=== PATIENT | male | born 1945 | race Caucasian/White ===

== ENCOUNTER 2017-06-10 13:02 | Observation (INO) ==
[2017-06-10] MEDS ORDERED: Acetaminophen 325 MG TABLET PO PRN (16:10)
[2017-06-10] MEDS ORDERED: Naloxone 0.4 MG/ML INJ IVP PRN (16:10)
[2017-06-10] MEDS ORDERED: *HR* OxyCODONE Immed Rel 5 MG TABLET PO PRN (16:10)
[2017-06-10] MEDS: *HR* HYDROmorphone (PF) 1 MG/ML SYRINGE IVP PRN (17:23)
[2017-06-10] MEDS: 0.9 % Sodium Chloride 1,000 ML IVC SCH (17:36)
--- NOTE | 2017-06-10 18:52 | Urology History & Physical ---
Date of Encounter: 06/10/17 Time of Encounter: 18:50 Assessment and Plan (1) Ureteral calculus, right Current Visit: Yes Status: Acute 72-year-old man with a right proximal ureteral stone. He has been admitted for pain control. I recommend proceeding with a right ureteroscopy, laser lithotripsy, and stent placement. He was informed of the risks of the procedure including but not limited to bleeding, infection, injury to other structures, need for further procedures, stent irritation, incomplete fragmentation, ureteral perforation, need for nephrostomy tube, need for open repair, risks unforeseen, and the risk of anesthesia. He is willing to proceed. History of Present Illness Chief complaint: Right flank pain HPI: Mr. Rhodes is a 72 year old male who presents with a one-week history of right flank pain. He was seen at the [facility] emergency department and had a CT scan obtained. This showed an approximate 6 mm right proximal ureteral stone. There is evidence of hydronephrosis. He was then transferred to [place] for further care. He reports the pain is located in the right flank and radiated to the groin. It is a sharp pain. He has previously been able to pass stones, but this one is not moving well. He says he is otherwise healthy. Past Med Surg Social Fam HX - Past Medical History Medical history: hyperlipidemia, hypertension Psychiatric history: no psych history - Past Surgical History Surgical History: appendectomy - Social History Smoking Status: Former smoker Smokeless Tobacco Status: No Alcohol use: none Drug use: none - Family History Father Hx Family Genitourinary Disorders: No (No stones) Medications and Allergies Aspirin [Lo-Dose Aspirin EC] 81 mg PO DAILY 12/23/16 [History] Calcium Carbonate [Calcium] 500 mg PO DAILY 12/23/16 [History] Cholecalciferol (Vitamin D3) [Vitamin D3] 1,000 unit PO DAILY 12/23/16 [History] Furosemide [Lasix] 40 mg PO DAILY 12/23/16 [History] Lisinopril [Zestril] 10 mg PO DAILY 12/23/16 [History] Nitroglycerin [Nitrostat] 0.4 mg SL Q5M PRN 12/23/16 [History] 3 Allergy/AdvReac Type Severity Reaction Status Date / Time No Known Allergies Allergy Verified 12/23/16 08:44 Review of Systems - Constitutional no chills, no fever(s) - EENT Nose, mouth and throat: no dizziness - Cardiovascular no chest pain - Respiratory no dyspnea - Gastrointestinal no nausea, no vomiting - Genitourinary flank pain, no hematuria - Musculoskeletal no back pain - Integumentary no erythema, no rash - Neurological no weakness - Psychiatric no suicidal ideation - Hematologic/Lymphatic no easy bleeding - Allergic/Immunologic no wheezing Exam Initial Vital Signs Temp Pulse Resp BP Pulse Ox 98.3 F 65 16 142/83 94 06/10/17 15:11 06/10/17 15:11 06/10/17 15:11 06/10/17 15:11 06/10/17 15:11 - General physical appearance Present: well developed, well nourished, no distress - Eyes Absent: icteric - ENT Present: normal nares - Neck Present: trachea midline - Respiratory Present: normal respiratory effort - Cardiovascular Cardiovascular exam IM: RRR - Abdomen Abdomen: Present: soft Urology Results - Labs All other labs normal. - Imaging CT scan - abdomen: report reviewed, image reviewed CT scan - pelvis: report reviewed, image reviewed
[2017-06-11 02:33] LABS: Bilirubin,Urine Negative (Negative); Blood,Urine Moderate (Negative); Clarity,Urine Clear (Clear); Color,Urine Yellow (Yellow); Glucose,Urine (UA) Normal (Normal); Ketones,Urine Negative (Negative); Leukocyte Esterase,Urine Negative (Negative); Nitrite,Urine Negative (Negative); PH,Urine 5.5 pH Units (5.0-8.0); Protein,Urine Negative (Neg-Trace); Specific Gravity,Urine 1.029 (1.010-1.025); Urobilinogen,Urine Normal (Normal)
[2017-06-11 02:36] LABS: Bacteria,Urine None Seen per hpf (None-Few); Hyaline Casts,Urine None Seen per lpf (None-Few); Squamous Epithelial Cell,Urine Moderate per lpf (None-Few)
[2017-06-11] MEDS: 0.9 % Sodium Chloride 1,000 ML IVC SCH ×2 (04:50→12:57)
[2017-06-11] MEDS: *HR* HYDROmorphone (PF) 1 MG/ML SYRINGE IVP PRN ×6 (05:07→20:31)
--- NOTE | 2017-06-11 06:37 | Urology Progress Note ---
Date of Encounter: 06/11/17 Time of Encounter: 06:36 - Assessment and Plan (1) Ureteral calculus, right Current Visit: Yes Status: Acute Assessment and plan: Right proximal ureteral stone. Plan for right ureteroscopy, laser lithotripsy, and stent placement. He is aware of all risks. He is willing to proceed. Progress Note Narrative: Doing well today. KUB reviewed. I can see a stone in the right proximal ureter. He is ready for surgery today. Objective Initial Vital Signs Temp Pulse Resp BP Pulse Ox 98.3 F 65 16 142/83 94 06/10/17 15:11 06/10/17 15:11 06/10/17 15:11 06/10/17 15:11 06/10/17 15:11 - General physical appearance Present: well developed, well nourished, no distress - Respiratory Present: normal respiratory effort - Abdomen Present: soft Consult Discharge Plan - Plan Referrals: Joo Valiente MD [Partnered Physician] - [facility],PC[facility] [Primary Care Provider] -
[2017-06-11] MEDS: Ondansetron 4 MG/2 ML VIAL IVP PRN ×2 (07:50→14:46)
[2017-06-11 07:54] LABS: Basophils % 0.4 %; Eosinophils # 0.2 K/mcL (0.0-0.6); Eosinophils % 3.5 %; Hematocrit 40.9 % (37.5-50.1); Hemoglobin 13.3 g/dL (12.9-16.9); Immature Granulocytes % 0.2 % (0-4); Lymphocytes # 0.9 K/mcL (0.6-4.6); Mean Corpuscular HGB Conc 32.5 g/dL (31.6-35.5); Mean Corpuscular Hemoglobin 31.7 pg (28.0-33.3); Mean Corpuscular Volume 97.6 fL (83.0-100.0); Mean Platelet Volume 10.2 fL (9.4-12.4); Monocytes # 0.6 K/mcL (0.0-1.3); Monocytes % 12.9 %; Neutrophils # 3.2 K/mcL (1.6-8.9); Platelet Count 126 K/mcL (140-400); Red Blood Count 4.19 M/mcL (4.19-5.50); Red Cell Distribution Width 12.8 % (11.5-14.5)
[2017-06-11 08:04] LABS: Calcium 8.2 mg/dL (8.6-10.8)
[2017-06-11] MEDS ORDERED: ceFAZolin 3,000 MG in D5% in Water 100 ML IVPB ONE (14:00)
--- NOTE | 2017-06-11 15:10 | Anesthesia Evaluation PreOp ---
Date of Encounter: 06/11/17 Time of Encounter: 15:08 - Past History Planned Operation: R USE with stent Cardiac History: HTN, Hyperlipidemia Pulmonary History: Former smoker [employer] History: Denies Any Significant HX Other Medical History: Renal (renal stones) Anesthesia History: No Prior Anesthetic Complications Alcohol Use: none Drug use: none Medications and Allergies Aspirin [Lo-Dose Aspirin EC] 81 mg PO DAILY 12/23/16 [History] Cholecalciferol (Vitamin D3) [Vitamin D3] 1,000 unit PO BID 12/23/16 [History] Furosemide [Lasix] 40 mg PO DAILY 12/23/16 [History] Lisinopril [Zestril] 10 mg PO DAILY 12/23/16 [History] Nitroglycerin [Nitrostat] 0.4 mg SL Q5M PRN 12/23/16 [History] Albuterol Sulfate [Albuterol Inhaler] 2 puff IH Q6H PRN 06/10/17 [History] Atorvastatin Calcium [Lipitor] 20 mg PO HS 06/10/17 [History] Calcium Carbonate [Calcium] 600 mg PO DAILY 06/10/17 [History] Methyl Salicylate/Menthol [Muscle Rub Cream] 1 appl TP BID PRN 06/10/17 [History ] Metoprolol XL (24 HR) Succ [Toprol XL] 25 mg PO DAILY 06/10/17 [History] 3 Allergy/AdvReac Type Severity Reaction Status Date / Time No Known Allergies Allergy Verified 12/23/16 08:44 - Meds/Allergy Pre-op Review Medications Reviewed: Yes Allergies Reviewed: Yes Beta Blockers on Current Med List: No Anesthesia Results - Labs 06/11/17 06:47 06/11/17 06:47 - Imaging EKG: report reviewed, image reviewed Additional studies: -2016 cardiac cath: Lesion Findings/Interventions * Left Main Coronary Artery The LMCA is angiographically free of disease. * Left Anterior Descending There is a 50% stenosis in the Proximal LAD. The lesion has a SASHA flow of 3. Mid Lad without significant disease * Circumflex The Circumflex is angiographically free of disease. The 1st Marginal is angiographically free of disease. * Right Coronary Artery There is a 60% stenosis in the Proximal RCA. The lesion has a SASHA flow of 3. Right PDA without significant disease Anesthesia Exam Last Vital Signs Temp 98.4 F 06/11/17 12:00 Pulse 64 06/11/17 12:00 Resp 18 06/11/17 12:00 BP 133/46 06/11/17 12:00 Pulse Ox 97 06/11/17 12:00 Weight: 123 kg NPO (# of Hours): > 8 hrs - HEENT Pupil (Motor): Pupils equal, EOMI Mallampati: III Teeth: Poor dentition Oral Opening: Greater than 3 - [employer] LOC: Oriented [employer] Motor: Normal RUE, Normal LUE, Normal RLE, Normal LLE, Normal Face - Cardiac Rhythm: Regular Murmur: None - Pulmonary Breath Sounds: bilateral Clear Respiratory Effort: Symmetrical Anesthesia Assess/Plan ASA Score: 2 Modified [place] Scale for Level of Consciousness: Cooperative, oriented, and tranquil Anesthetic Plan: General Monitoring Plan: Standard Monitors Recovery Plan: PACU
[2017-06-11] MEDS ORDERED: *HR* FentaNYL (PF) 100 MCG/2 ML VIAL ONE (15:46)
[2017-06-11] MEDS ORDERED: *HR* Propofol 200 MG/20 ML VIAL IVP ONE (15:46)
[2017-06-11] MEDS ORDERED: Lidocaine -MPF 2% 2 ML VIAL ONE ×2 (15:46→16:18)
[2017-06-11] MEDS ORDERED: *HR* Promethazine 25 MG/ML VIAL IVP PRN (15:55)
[2017-06-11] MEDS ORDERED: *HR* Morphine 2 MG/ML SYRINGE IVP PRN (15:55)
[2017-06-11] MEDS ORDERED: Dexamethasone 4 MG/ML VIAL ONE (16:18)
[2017-06-11] MEDS ORDERED: Ondansetron 4 MG/2 ML VIAL ONE (16:18)
--- NOTE | 2017-06-11 16:55 | Operative Note ---
Date of procedure: 06/11/17 Pre-op diagnosis: Right ureteral stone Post-op diagnosis: same Procedure: Right ureteroscopy, laser lithotripsy, basket stone extraction, and stent placement. Implants: 6 Ethiopian by 26 cm double-J stent. Complications: None Anesthesia: LUCIA Surgeon: Joo Valiente Estimated blood loss (cc): 1 Specimen: Right ureteral stone Condition: stable Disposition: PACU Procedure in Detail: Indications: Mr. Tomas is a 8-year-old male who has a history of nephrolithiasis. He developed right flank pain. A KUB showed a right proximal ureteral stone. He elected to undergo a right ureteroscopy, laser lithotripsy, and basket stone extraction with stent placement. He was aware of the risks of the procedure including but not limited to bleeding, infection, injury to other structures, need for further procedures, stent irritation, need for nephrostomy tube, need for open repair, risks otherwise unforeseen, and the risk of anesthesia. He is willing to proceed. Procedure in Detail: After informed consent was obtained the patient was brought back to the operating room and placed in supine position. A time out was performed. General anesthesia was administered and an LMA was placed. He was then placed in the lithotomy position. He was prepped and draped in the usual sterile fashion. Cystoscopy was performed. The anterior urethra was normal. There was no evidence of bladder tumors. The ureteral orifices were in the normal orthotopic position. There was no duplication of the ureteral orifices. The zip wire was placed in the right ureteral orifice. The wire was then brought up into the kidney under fluoroscopic guidance. I then passed the 8/10 Ethiopian ureteral dilator. This was removed. The semirigid ureteroscope was moved into the proximal ureter. I could see the stone but the scope was all at the ureteropelvic junction. I then removed the scope after inserting the sensor wire. I then passed the 11/13 Ethiopian ureteral access sheath. The flexible ureteroscope was then advanced into the kidney. All the calyces were surveyed. There was a stone within the upper pole calyx. I then inserted a 200 micron laser fiber and fragmented the stone into small pieces. These pieces were then basket extracted. The ureteroscope was then removed and the pullout ureteroscopy showed no injury to the ureter. A 6 Ethiopian by 26cm JJ stent was then placed. The dangle strings were left intact and secured to the penis with a Tegaderm. The patient was then awakened from general anesthesia and brought to recovery room in good condition. All sponge, needle, and instrument counts were correct.
[2017-06-11] MEDS ORDERED: Albuterol 2.5 MG/3 ML NEBULIZER ONE (17:12)
[2017-06-11] MEDS ORDERED: Albuterol 2.5 MG/3 ML NEBULIZER IH ONE (17:31)
--- NOTE | 2017-06-11 17:32 | Anesthesia Evaluation Post Op ---
Date of Encounter: 06/11/17 Time of Encounter: 17:31 - Vital Signs Vital Signs: Last Vital Signs Temp 99.3 F 06/11/17 17:25 Pulse 67 06/11/17 17:25 Resp 18 06/11/17 17:25 BP 159/93 06/11/17 17:25 Pulse Ox 96 06/11/17 17:25 - Lungs Lungs: Clear Ascult./Percussion - Airway Airway: Non-obstructed - Cardiovascular Regular Rate - Mental Status Mental Status: Alert & Oriented, Answers Appropriately - Pain Pain Scale: 2 - Nausea Vomiting Nausea Vomiting: Not Present - Hydration Hydration: Ice chips - Discharge PostOp Status: Transfer Patient to floor
[2017-06-11] MEDS ORDERED: *HR* OxyCODONE Immed Rel 5 MG TABLET PO PRN (18:01)
[2017-06-11] MEDS ORDERED: Naloxone 0.4 MG/ML INJ IVP PRN (18:01)
[2017-06-11] MEDS ORDERED: Ondansetron 4 MG/2 ML VIAL IVP PRN (18:01)
[2017-06-11] MEDS ORDERED: Acetaminophen 325 MG TABLET PO PRN (18:01)
[2017-06-11] MEDS ORDERED: 0.9 % Sodium Chloride 1,000 ML IVC SCH (18:01)
[2017-06-12 07:27] VITALS: BP 143/81
--- NOTE | 2017-06-12 08:11 | Discharge Summary ---
Date of Encounter: 06/12/17 Time of Encounter: 08:09 - Discharge Diagnosis (1) Ureteral calculus, right Priority: Primary Status: Acute - Discharge Medications Prescriptions: Docusate [Colace] 100 mg PO BID #60 capsule Oxycodone HCl/Acetaminophen [Percocet 5-325 mg Tablet] 1 each PO Q6H PRN #25 tablet PRN Reason: Pain Home Medications: Aspirin [Lo-Dose Aspirin EC] 81 mg PO DAILY 12/23/16 [History] Cholecalciferol (Vitamin D3) [Vitamin D3] 1,000 unit PO BID 12/23/16 [History] Furosemide [Lasix] 40 mg PO DAILY 12/23/16 [History] Lisinopril [Zestril] 10 mg PO DAILY 12/23/16 [History] Nitroglycerin [Nitrostat] 0.4 mg SL Q5M PRN 12/23/16 [History] Albuterol Sulfate [Albuterol Inhaler] 2 puff IH Q6H PRN 06/10/17 [History] Atorvastatin Calcium [Lipitor] 20 mg PO HS 06/10/17 [History] Calcium Carbonate [Calcium] 600 mg PO DAILY 06/10/17 [History] Methyl Salicylate/Menthol [Muscle Rub Cream] 1 appl TP BID PRN 06/10/17 [History ] Metoprolol XL (24 HR) Succ [Toprol Xl] 25 mg PO DAILY 06/10/17 [History] Docusate [Colace] 100 mg PO BID #60 capsule 06/12/17 [Rx] Oxycodone HCl/Acetaminophen [Percocet 5-325 mg Tablet] 1 each PO Q6H PRN #25 tablet 06/12/17 [Rx] Allergies/Adverse Reactions: 3 Allergy/AdvReac Type Severity Reaction Status Date / Time No Known Allergies Allergy Verified 12/23/16 08:44 Labs on day of discharge: Labs from last 24 hours 06/11/17 12:04 POC Glucose 93 H - Impressions ITS Impressions KUB X-Ray 06/10/17 16:12 IMPRESSION: Numerous punctate calcifications within the lower aspect of the pelvis, greater on the left, probably phleboliths, but a distal ureteral calculus cannot be excluded. D/ / Helio Crespo MD / Helio Crespo MD Interpreting Provider: Helio Crespo MD Fluoroscopy 06/11/17 00:00 IMPRESSION: Intraprocedural fluoroscopic spot images as above. See separate procedure report for more information. D/ / Joo Fields / Joo Fields Interpreting Provider: Joo Fields Date of admission: 06/10/17 14:30 Primary care physician: PCP ID Discharging clinician: Joo Valiente Anticipated date of discharge: 06/12/17 - Patient Status Disposition: Home, Self-Care Condition: Good Functional capacity at discharge: independent ambulation Overall status at discharge: patient is progressing back to baseline - Discharge Instructions Follow Up With: ID,PCP [Primary Care Provider] - Joo Valiente MD [Partnered Physician] - (next week for stent with string removal.) Additional Instructions: 1. The patient can follow up next week to remove the stent. He has a string attached to it. 2. He should expect to feel flank pain with voiding. 3. The patient should call for any fevers, chills, nausea, emesis, or uncontrolled pain. 4. Please provide a work excuse if necessary for up to 1 week off. - Diet and Activity Activity: increase activity as tolerated Diet: advance to your usual diet - Hospital Course Hospital course: Mr. Rhodes is a 72 year old male who presents with right flank pain. A KUB showed a right proximal ureteral stone. He was admitted on June 10, 2017. On June 11, 2017 he underwent a right uroseptic stone extraction with stent placement. He did well after the surgery and was discharged home on June 12, 2017. - Time Spent with Patient Total time spent providing and/or coordinating discharge services: Less than 30 minutes Exam Initial Vital Signs Temp Pulse Resp BP Pulse Ox 98.3 F 65 16 142/83 94 06/10/17 15:11 06/10/17 15:11 06/10/17 15:11 06/10/17 15:11 06/10/17 15:11 - General physical appearance Present: well developed, well nourished, no distress - Eyes Absent: icteric - ENT Present: normal mucosa - Neck Present: trachea midline - Respiratory Present: normal respiratory effort - Cardiovascular Cardiovascular exam IM: RRR - Abdomen Abdomen: Present: soft - VTE Documentation of Mechanical Device: Intermittent pneumatic compression device
[2017-06-12] MEDS ORDERED: Aspirin Enteric Coated 81 MG Tablet PO SCH (09:00)
[2017-06-12] MEDS ORDERED: Metoprolol XL (24 HR) Succ 25 MG TAB.ER.24H PO SCH (09:00)
== END 2017-06-12 15:00 | disposition home or self-care (01) ==
LOC: 3ANU
PROVIDERS: ADMIT Urology; ATTEND Urology